=== PATIENT | female | born 1985 | race Hispanic/Latino ===

== ENCOUNTER 2017-06-10 11:29 | Emergency (ER) | payer OTHER ==
[~2017-06-10] VITALS: Ht 149.9 cm; Wt 82.6 kg
[~2017-06-10 11:29] MED LIST: ULTRAM50 MG PO; Z.0.LEVAQUIN500 MG PO; Z.0.LORTAB 7.5-5001 PO; ZYRTEC10 MG
--- OUTSIDE RECORDS SUMMARY | 2017-06-10 11:32 | XMS REPORT ---
Author Author [facility] Address Unknown Phone Unavailable Care Team Providers Care Adjustment Examiner Name Role Phone BRITTNI PÉREZ Unavailable Unavailable Problems This patient has no known problems. Allergies, Adverse Reactions, Alerts This patient has no known allergies or adverse reactions. Medications This patient has no known medications. Results Test Description Test Time Test Comments Text Results Atomic Results Result Comments CT ABDOMEN/PELVIS WO [place] [address] Patient Name: JOSE NOBLE MR #: [id number] : 1985 Age/Sex: 31/F Req #: [id number] Adm Physician: BRITTNI PÉREZ MD Ordered by: BRITTNI PÉREZ MD Report #: [id number] Location: [facility] Room/Bed: [place] [address] _ Procedure: [id number] CT/CT ABDOMEN/PELVIS WO Exam Date: Exam Time: REPORT STATUS: Signed PROCEDURE: CT ABDOMEN AND PELVIS WITHOUT CONTRAST TECHNIQUE: The abdomen and pelvis were scanned utilizing a multidetector helical scanner from the diaphragm to the lesser trochanter. No oral or intravenous contrast was administered per referring physician request. Coronal and sagittal multiplanar reformations were obtained. COMPARISON: CT abdomen pelvis with contrast 11/17/2014 INDICATIONS: LEFT FLANK PAIN. LOW HEMOGLOBIN FINDINGS: ABSENCE OF INTRAVENOUS CONTRAST DECREASES SENSITIVITY FOR DETECTION OF FOCAL LESIONS AND VASCULAR PATHOLOGY. LOWER THORAX: Normal. HEPATOBILIARY: No focal hepatic lesion or intrahepatic biliary ductal dilatation. The gallbladder has been removed. SPLEEN: No splenomegaly. PANCREAS: No focal masses or ductal dilatation. ADRENALS: No adrenal nodules. KIDNEYS/ URETERS: Macroscopic fat containing lesion in the left renal hilum with small nodular soft tissue component is unchanged. Additional subcentimeter hypoattenuating lesions scattered throughout the left kidney are again noted. A single small hypoattenuating lesion in the lower pole of the right kidney, also subcentimeter in size, is again noted. No renal, ureteral, or bladder calculi. No hydronephrosis. PELVIC ORGANS/BLADDER: The urinary bladder is incompletely distended but otherwise unremarkable. The uterus is neutral in position and appears normal. No adnexal mass. PERITONEUM / RETROPERITONEUM: Trace low attenuation free fluid in the rectouterine space. No pneumoperitoneum. LYMPH NODES: No pelvic sidewall, retroperitoneal, or mesenteric lymphadenopathy. VESSELS: Limited evaluation without intravenous contrast. The abdominal aorta is non-aneurysmal. GI TRACT: The large bowel shows no evidence of distention or wall thickening. Gas and fecal material are noted throughout. The appendix has been removed with metallic clips at the appendiceal stump. Laparoscopic band apparatus encircles the proximal stomach with intact tubing and reservoir. No small bowel dilatation to suggest obstruction. BONES AND SOFT TISSUES: No focal soft tissue abnormalities. Postsurgical changes of the anterior abdominal wall. No osseous destructive lesions. IMPRESSION: No acute intra- abdominal or pelvic CT abnormalities. No CT evidence of urolithiasis. 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 Dictated by: Misa Lee M.D. on 11/12/2016 at 7:04 Electronically approved by: Misa Lee M.D. on 11/12/2016 at 7:04 Dictated By: MISA LEE MD 3 Transcribed By: DEMAR on 11/12/16703 COPY TO: BRITTNI PÉREZ MD
[2017-06-10 12:31] LABS: BASOPHILS % 0.2 % (0.0-1.0); EOSINOPHILS # (AUTO) 0.1 (0.0-0.4); EOSINOPHILS % 1.5 % (0.0-6.0); HEMATOCRIT 32.5 % (34.2-44.1); LYMPHOCYTES # (AUTO) 2.2 (1.0-3.2); LYMPHOCYTES % 35.7 % (18.0-39.1); MEAN CORPUSCULAR HGB CONC 30.8 g/dL (31-35); MEAN CORPUSCULAR VOLUME 71.6 fL (81-99); MONOCYTES # (AUTO) 0.3 (0.2-0.8); MONOCYTES % 5.5 % (4.4-11.3); NEUTROPHILS # (AUTO) 3.4 (2.1-6.9); NEUTROPHILS % 56.9 % (38.7-80.0); PLATELET COUNT 359 x10e3/uL (140-360); RED BLOOD COUNT 4.54 x10e6/uL (3.6-5.1); RED CELL DISTRIBUTION WIDTH 14.8 % (11.7-14.4)
[2017-06-10 12:36] LABS: CLARITY,URINE CLEAR (CLEAR); COLOR,URINE YELLOW (YELLOW); KETONES,URINE NEGATIVE (NEGATIVE); LEUKOCYTE ESTERASE ,URINE NEGATIVE (NEGATIVE); NITRITE,URINE NEGATIVE (NEGATIVE); PROTEIN,URINE DIPSTICK NEGATIVE (NEGATIVE); URINE UROBILINOGEN 0.2 mg/dL (0.2 - 1)
[2017-06-10 12:37] LABS: BILIRUBIN,URINE NEGATIVE (NEGATIVE)
[2017-06-10 12:54] LABS: ALANINE AMINOTRANSFERASE 15 IU/L (0-55); ALBUMIN 3.6 g/dL (3.5-5.0); ALBUMIN/GLOBULIN RATIO 0.9 (0.8-2.0); ALKALINE PHOSPHATASE 89 IU/L (40-150); ANION GAP 11.4 mmol/L (8-16); BLOOD UREA NITROGEN 7 mg/dL (7-26); BUN/CREATININE RATIO 11 (6-25); CALCIUM 9.4 mg/dL (8.4-10.2); CARBON DIOXIDE 27 mmol/L (22-29); CHLORIDE 104 mmol/L (98-107); CREATININE, SERUM 0.61 mg/dL (0.57-1.11); EST GLOMERULAR FILTRATION RATE > 60 ML/MIN (60-); GLUCOSE 86 mg/dL (74-118); POTASSIUM 3.4 mmol/L (3.5-5.1); SODIUM 139 mmol/L (136-145)
[2017-06-10 13:08] LABS: BACTERIA,URINE FEW /HPF; EPITHELIAL CELLS,URINE FEW /LPF
[2017-06-10] MEDS ORDERED: POTASSIUM CHLORIDE 20 MEQ TAB CR PO STA (13:14)
--- NOTE | 2017-06-10 13:56 | Diagnostic Imaging Report ---
PROCEDURE: CT ABDOMEN AND PELVIS WITHOUT CONTRAST COMPARISON:[facility], CT, CT ABDOMEN/PELVIS W, 11/17/2014, 11:36. [facility], CT, CT ABDOMEN/PELVIS WO, 11/12/2016, 6:03. INDICATIONS:LEFT FLANK PAIN TECHNIQUE: Axial CT images through the abdomen and pelvis were obtained without intravenous contrast. Coronal and sagittal reformations were created. DLP: 702.2 mGy-cm2 FINDINGS: Right kidney: No calculus, renal edema, or perinephric inflammation. Fat attenuating lesion in the medial lower pole measures 5 mm and is stable. Left kidney: There is a duplicated collecting system. Macroscopic fat in the hilum is stable in appearance measuring approximately 4.0 x 3.5 cm in maximum dimension. Multiple fat attenuating lesions throughout the parenchyma measure up to 6 mm and are stable. No evidence of renal calculus. No renal edema or perinephric inflammation. Bladder/ureters: No ureteral dilatation or periureteric inflammation. No evidence of calculus in the ureters or bladder. Liver: Normal attenuation without mass or duct dilatation Spleen: Normal size and attenuation without mass. Biliary: The gallbladder is absent. Biliary tree is normal. Pancreas: Normal attenuation without mass or ductal dilatation. Adrenal Glands: No mass. Vasculature: Aorta and IVC are normal in diameter. GI: Postoperative changes of the GE junction from laparoscopic gastric band are re-demonstrated. The band is in appropriate orientation. Small bowel is normal in diameter with normal wall thickness. Large bowel is normal in diameter with normal wall thickness. No pericolonic inflammation. The appendix is absent. Peritoneum/Retroperitoneum: No free fluid or fluid collection. No lymphadenopathy. Reproductive organs: The uterus is present and mildly retroflexed in position. There are no adnexal masses. MSK: Unremarkable for age. Lung bases: Clear. Visualized portion of the mediastinum is normal. CONCLUSION: 1. No evidence of renal calculus or obstructive uropathy. 2. 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 3. No bowel obstruction or inflammation. 4. Postoperative changes as described above are stable. Dictated by: Duy Worley M.D. on 06/10/2017 at 13:57 Electronically approved by: Duy Worley M.D. on 06/10/2017 at 13:57
[2017-06-10 14:55] VITALS: BP 120/79
== END 2017-06-10 14:57 | disposition home or self-care (01) ==
LOC: ER 11:29
CPT/HCPCS: 36415; 74176; 80053; 81001; 84702; 85025; 86900; 99283

== ENCOUNTER → 2018-02-15 | Emergency (ER) | payer OTHER ==
[~2018-02-15] MED LIST changes: +CYCLOBENZAPRINE HCL 10 MG TAB PO ONE; +KETOROLAC TROMETHAMINE 60 MG/2 ML VIAL IM ONE; +MORPHINE SULFATE 2 MG/ML SYR IM STA
--- OUTSIDE RECORDS SUMMARY | 2018-02-15 11:11 | XMS REPORT | Continuity of Care Document ---
Author Author [facility] Interface Address Unknown Phone Unavailable Problems Problem Status Onset Date Classification Date Reported Comments Source OBSTRUCTING KIDNEY STONE Active 03/04/2016 [facility] Medications Medication Details Route Status Patient Instructions Ordering Provider Order Date Source Ciprofloxacin 500 MG Oral Tablet [Cipro] 500 mg=1 tab, PO, Q12H, X 7 day, # 14 tab, 0 Refill(s) Active 03/06/2016 [facility] tramadol hydrochloride 50 MG Oral Tablet 50 mg=1 tab, PO, Q4H, PRN Pain Score 4-6, # 30 tab, 0 Refill(s) Active 03/06/2016 [facility] tamsulosin 0.4 mg oral capsule 0.4 mg=1 cap, PO, After Breakfast, # 30 cap, 0 Refill(s) Active 03/06/2016 [facility] Rocephin 1 gm, Route: IVPB, Drug form: PDR/INJ, ONCE, Dosing Weight 78.636, kg, Start date: 03/05/16 17:02:00 DISTRICT SALES COORDINATOR, Stop date: 03/05/16 17:02:00 DISTRICT SALES COORDINATOR Inactive 03/05/2016 [facility] Ondansetron 4 mg, 2 mL, Route: IVP, Drug form: INJ, ONCE, Dosing Weight 78.636, kg, PRN Nausea & Vomiting, Start date: 03/05/16 16:48:00 CSTNotes: (Same as: Zofran) MEDICATION WASTE Product Size: 4 mg Product Wasted: ___ mg Inactive 03/05/2016 [facility] Naloxone 0.4 mg, 1 mL, Route: IVP, Drug form: INJ, Q2MIN, Dosing Weight 78.636, kg, PRN Narcotic Reversal, Start date: 03/05/16 16:48:00 DISTRICT SALES COORDINATOR, Duration: 8 doses or times, Stop date: Limited # of timesNotes: Same as Narcan Inactive 03/05/2016 [facility] Flumazenil 0.2 mg, 2 mL, Route: IVP, Drug form: INJ, PRN, Dosing Weight 78.636, kg, PRN Benzodiazepine Reversal, Initial dose, Start date: 03/05/16 16:48:00 DISTRICT SALES COORDINATOR, Duration: 30 day, Stop date: 04/04/16 16:47:00 C STNotes: (Same as: Romazicon) Inactive 03/05/2016 [facility] Hydralazine 10 mg, 0.5 mL, Route: IVP, Drug form: INJ, Q20Min, Dosing Weight 78.636, kg, PRN Elevated BP, Start date: 03/05/16 16:48:00 DISTRICT SALES COORDINATOR, Duration: 2 doses or times, Stop date: Limited # of timesNotes: (Same as: Apresoline) Push over 5 minutes Inactive 03/05/2016 [facility] Labetalol 10 mg, 2 mL, Route: IVP, Drug form: INJ, Q5Min, Dosing Weight 78.636, kg, PRN Elevated BP, Start date: 03/05/16 16:48:00 DISTRICT SALES COORDINATOR, Duration: 5 doses or times, Stop date: Limited # of times Inactive 03/05/2016 [facility] Flomax 0.4 mg, 1 cap, Route: PO, Drug form: CAP, After Breakfast, Dosing Weight 78.636, kg, Start date: 03/05/16 8:30:00 DISTRICT SALES COORDINATOR, Duration: 30 day, Stop date: 04/03/16 8:30:00 CSTNotes: (Same As: Flomax) "Do Not Crush" Inactive 03/05/2016 [facility] ketOROLAC 15 mg/mL injectable solution 15 mg, 1 mL, Route: IVP, Drug form: INJ, Q6H-02, Dosing Weight 78.636, kg, Start date: 03/05/16 2:00:00 DISTRICT SALES COORDINATOR, Stop date: 03/08/16 2:00:00 CSTNotes: (Same as:Toradol) IV bolus must be given >15 seconds. Give IM administration slowly and deeply into the muscle. Not for use > 4 days. Inactive 03/05/2016 [facility] tramadol hydrochloride 50 MG Oral Tablet 50 mg, 1 tab, Route: PO, Drug form: TAB, Q4H, Dosing Weight 78.636, kg, Start date: 03/05/16 0:00:00 DISTRICT SALES COORDINATOR, Duration: 30 day, Stop date: 04/03/16 20:00:00 CSTNotes: Not to exceed 400mg/day. (Same As: Ultram) Inactive 03/05/2016 [facility] Benadryl 25 mg, 1 cap, Route: PO, Drug form: CAP, TID, Dosing Weight 78.636, kg, PRN Itching, Start date: 03/04/16 23:39:00 DISTRICT SALES COORDINATOR, Duration: 30 day, Stop date: 04/03/16 23:38:00 CSTNotes: (Same as: Benadryl) No Longer Active 03/05/2016 [facility] Zofran 4 mg, 2 mL, Route: IVP, Drug form: INJ, Q8H, Dosing Weight 78.636, kg, PRN Nausea, Start date: 03/04/16 21:49:00 DISTRICT SALES COORDINATOR, Duration: 30 day, Stop date: 04/03/16 21:48:00 CSTNotes: (Same as: Zofran) MEDICATION WASTE Product Size: 4 mg Product Wasted: ___ mg No Longer Active 03/05/2016 [facility] Tramadol 50 mg, 1 tab, Route: PO, Drug form: TAB, Q4H, Dosing Weight 78.636, kg, PRN Pain Score 1-3, Start date: 03/04/16 20:33:00 DISTRICT SALES COORDINATOR, Duration: 30 day, Stop date: 04/03/16 20:32:00 CSTNotes: Not to exceed 4 00mg/day. (Same As: Ultram) Inactive 03/05/2016 [facility] Docusate Sodium 100 MG Oral Capsule [Colace] 100 mg, 1 cap, Route: PO, Drug form: CAP, BID, Dosing Weight 78.636, kg, Start date: 03/04/16 17:00:00 DISTRICT SALES COORDINATOR, Duration: 30 day, Stop date: 04/03/16 9:00:00 CSTNotes: (Same as: Colace) (Do Not Crush) No Longer Active 03/04/2016 [facility] sodium chloride 0.9% 1000 ml INJ 1,000 mL 1,000 mL, Rate: 125 ml/hr, Infuse over: 8 hr, Route: IV, Dosing Weight 78.636 kg, Total Volume: 1,000, Start date: 03/04/16 15:59:00 DISTRICT SALES COORDINATOR, Duration: 30 day, Stop date: 04/03/16 15:58:00 DISTRICT SALES COORDINATOR No Longer Active 03/04/2016 [facility] Dilaudid 0.5 mg, 0.25 mL, Route: IVP, Drug form: INJ, Q3H, Dosing Weight 78.636, kg, PRN Pain Score 7-10, Start date: 03/04/16 15:59:00 DISTRICT SALES COORDINATOR, Stop date: 04/03/16 15:58:00 DISTRICT SALES COORDINATOR, PainNotes: Same as Dilaudid No Longer Active 03/04/2016 [facility] Sodium Chloride 0.154 MEQ/ML Injectable Solution 1,000 mL, 1000 ml/hr, Infuse Over: 1 hr, Route: IV, 1,000, Drug form: INJ, ONCE, Priority: STAT, Dosing Weight 78.636 kg, Start date: 03/04/16 13:25:00 DISTRICT SALES COORDINATOR, Duration: 1 doses or times, Stop date: 03/04/16 13:25:00 DISTRICT SALES COORDINATOR Inactive 03/04/2016 [facility] Ondansetron 4 mg, 2 mL, Route: IVP, Drug form: INJ, ONCE, Dosing Weight 78.636, kg, Priority: STAT, Start date: 03/04/16 13:25:00 DISTRICT SALES COORDINATOR, Stop date: 03/04/16 13:25:00 CSTNotes: (Same as: Zofran) MEDICATION WASTE Product Size: 4 mg Product Wasted: _0__ mg Inactive 03/04/2016 [facility] Morphine 4 mg, 1 mL, Route: IVP, Drug form: INJ, ONCE, Dosing Weight 78.636, kg, Priority: STAT, Start date: 03/04/16 13:25:00 DISTRICT SALES COORDINATOR, Stop date: 03/04/16 13:25:00 CSTNotes: (Same as:MORPhine Sulfate) Inactive 03/04/2016 [facility] Ceftriaxone 1 gm, Route: IVPB, Drug form: PDR/INJ, ONCE, Dosing Weight 78.636, kg, Priority: STAT, Start date: 03/04/16 13:25:00 DISTRICT SALES COORDINATOR, Stop date: 03/04/16 13:25:00 DISTRICT SALES COORDINATOR Inactive 03/04/2016 [facility] Allergies, Adverse Reactions, Alerts Substance Category Reaction Severity Reaction type Status Date Reported Comments Source Immunizations Immunization Date Given Site Status Last Updated Comments Source Results Order Name Results Value Reference Range Date Interpretation Comments Source URINE AND STOOL UA Urobilinogen <=1.0 mg/dL 0.1 - 1.0 03/05/2016 [facility] URINE AND STOOL UA Glucose Negative mg/dL Negative mg/dL 03/05/2016 [facility] URINE AND STOOL UA Turbidity Clear (03/05/16 11:31 AM) Clear 03/05/2016 [facility] URINE AND STOOL UA Ketones Negative mg/dL Negative mg/dL 03/05/2016 [facility] URINE AND STOOL UA Protein Negative mg/dL Negative mg/dL 03/05/2016 [facility] URINE AND STOOL UA Spec Grav 1.006 <=1.030 03/05/2016 [facility] URINE AND STOOL UA pH 7.0 5.0 - 8.0 03/05/2016 [facility] URINE AND STOOL UA Bili Negative *NA* (03/05/16 11:31 AM) Negative 03/05/2016 [facility] URINE AND STOOL UA Blood Negative (03/05/16 11:31 AM) Negative 03/05/2016 [facility] URINE AND STOOL UA Nitrite Negative (03/05/16 11:31 AM) Negative 03/05/2016 [facility] URINE AND STOOL UA Color Light Yellow *NA* (03/05/16 11:31 AM) Yellow 03/05/2016 [facility] URINE AND STOOL UA Sq Epi None Seen 03/05/2016 [facility] URINE AND STOOL UA WBC 1 /HPF 0 - 5 03/05/2016 [facility] URINE AND STOOL UA Mucus Few /LPF None Seen /LPF 03/05/2016 [facility] URINE AND STOOL UA Leuk Est Negative (03/05/16 11:31 AM) Negative 03/05/2016 [facility] URINE CHEM U Preg Negative (03/05/16 11:31 AM) Negative 03/05/2016 [facility] ELECTROLYTES AGAP 12.6 meq/L 10.0 - 20.0 03/05/2016 [facility] ELECTROLYTES Creatinine Lvl 0.46 mg/dL 0.50 - 1.40 03/05/2016 [facility] ELECTROLYTES Sodium Lvl 137 meq/L 135 - 145 03/05/2016 [facility] ELECTROLYTES CO2 24 meq/L 24 - 32 03/05/2016 [facility] ELECTROLYTES Calcium Lvl 8.3 mg/dL 8.5 - 10.5 03/05/2016 [facility] ELECTROLYTES Chloride Lvl 104 meq/L 95 - 109 03/05/2016 [facility] ELECTROLYTES Potassium Lvl 3.6 meq/L 3.5 - 5.1 03/05/2016 [facility] ELECTROLYTES eGFR 134 mL/min/1.73m2 03/05/2016 Result Comment: The eGFR is calculated using the CKD-EPI formula. In most young, healthy individuals the eGFR will be >90 mL/min/1.73m2. The eGFR declines with age. An eGFR of 60-89 may be normal in some populations, particularly the elderly, for whom the CKD-EPI formula has not been extensively validated. Use of the eGFR is not recommended in the following populations: Individuals with unstable creatinine concentrations, including patients and those with serious co-morbid conditions. Patients with extremes in muscle mass or diet. The data above are obtained from the National Kidney Disease Education Program (NKDEP) which additionally recommends that when the eGFR is used in patients with extremes of body mass index for purposes of drug dosing, the eGFR should be multiplied by the estimated BMI. [facility] ELECTROLYTES BUN 4 mg/dL 7 - 22 03/05/2016 [facility] ELECTROLYTES Glucose Lvl 82 mg/dL 70 - 99 03/05/2016 [facility] HEMATOLOGY Monocytes # 0.4 K/CMM 0.0 - 0.8 03/05/2016 [facility] HEMATOLOGY Eosinophils # 0.1 K/CMM 0.0 - 0.5 03/05/2016 [facility] HEMATOLOGY Microcyte 3+ *NA* (03/05/16 4:14 AM) None Seen 03/05/2016 [facility] HEMATOLOGY Eosinophils 2.5 % 0.0 - 4.0 03/05/2016 [facility] HEMATOLOGY Segs-Bands # 3.6 K/CMM 1.5 - 8.1 03/05/2016 [facility] HEMATOLOGY Basophils 0.4 % 0.0 - 1.0 03/05/2016 [facility] HEMATOLOGY Lymphocytes # 1.3 K/CMM 1.0 - 5.5 03/05/2016 [facility] HEMATOLOGY Segs 65.5 % 45.0 - 75.0 03/05/2016 [facility] HEMATOLOGY Monocytes 7.3 % 2.0 - 12.0 03/05/2016 [facility] HEMATOLOGY Lymphocytes 24.3 % 20.0 - 40.0 03/05/2016 [facility] HEMATOLOGY RDW 18.5 % 11.5 - 14.5 03/05/2016 [facility] HEMATOLOGY MPV 7.7 fL 7.4 - 10.4 03/05/2016 [facility] HEMATOLOGY Platelet 312 K/CMM 133 - 450 03/05/2016 [facility] HEMATOLOGY MCHC 29.5 g/dL 32.0 - 36.0 03/05/2016 [facility] HEMATOLOGY Hgb 7.2 g/dL 12.0 - 16.0 03/05/2016 [facility] HEMATOLOGY RBC 3.98 M/CMM 4.20 - 5.40 03/05/2016 [facility] HEMATOLOGY MCH 18.2 pg 27.0 - 31.0 03/05/2016 [facility] HEMATOLOGY MCV 61.6 fL 80.0 - 98.0 03/05/2016 [facility] HEMATOLOGY Hct 24.5 % 36.0 - 48.0 03/05/2016 [facility] HEMATOLOGY WBC 5.5 K/CMM 3.7 - 10.4 03/05/2016 [facility] BLOOD BANK RESULTS Antibody Scrn Negative (03/04/16 1:38 PM) 03/04/2016 [facility] BLOOD BANK RESULTS ABO/Rh A POS 03/04/2016 [facility] CHEM PANEL Lactic Acid Lvl 0.7 mMol/L 0.5 - 2.2 03/04/2016 [facility] ELECTROLYTES AGAP 13.9 meq/L 10.0 - 20.0 03/04/2016 [facility] ELECTROLYTES eGFR 137 mL/min/1.73m2 03/04/2016 Result Comment: The eGFR is calculated using the CKD-EPI formula. In most young, healthy individuals the eGFR will be >90 mL/min/1.73m2. The eGFR declines with age. An eGFR of 60-89 may be normal in some populations, particularly the elderly, for whom the CKD-EPI formula has not been extensively validated. Use of the eGFR is not recommended in the following populations: Individuals with unstable creatinine concentrations, including patients and those with serious co-morbid conditions. Patients with extremes in muscle mass or diet. The data above are obtained from the National Kidney Disease Education Program (NKDEP) which additionally recommends that when the eGFR is used in patients with extremes of body mass index for purposes of drug dosing, the eGFR should be multiplied by the estimated BMI. [facility] ELECTROLYTES Chloride Lvl 106 meq/L 95 - 109 03/04/2016 [facility] ELECTROLYTES Creatinine Lvl 0.43 mg/dL 0.50 - 1.40 03/04/2016 [facility] ELECTROLYTES BUN 6 mg/dL 7 - 22 03/04/2016 [facility] ELECTROLYTES Calcium Lvl 8.2 mg/dL 8.5 - 10.5 03/04/2016 [facility] ELECTROLYTES CO2 26 meq/L 24 - 32 03/04/2016 [facility] ELECTROLYTES Potassium Lvl 4.9 meq/L 3.5 - 5.1 03/04/2016 Result Comment: Specimen Moderately Hemolyzed. [facility] ELECTROLYTES Sodium Lvl 141 meq/L 135 - 145 03/04/2016 [facility] ELECTROLYTES Glucose Lvl 83 mg/dL 70 - 99 03/04/2016 [facility] HEMATOLOGY PTT 32.6 s 22.9 - 35.8 03/04/2016 [facility] HEMATOLOGY INR 1.05 0.85 - 1.17 03/04/2016 [facility] HEMATOLOGY PT 13.9 s 12.0 - 14.7 03/04/2016 [facility] HEMATOLOGY Lymphocytes # 1.9 K/CMM 1.0 - 5.5 03/04/2016 [facility] HEMATOLOGY Segs-Bands # 3.9 K/CMM 1.5 - 8.1 03/04/2016 [facility] HEMATOLOGY Eosinophils # 0.2 K/CMM 0.0 - 0.5 03/04/2016 [facility] HEMATOLOGY Monocytes # 0.4 K/CMM 0.0 - 0.8 03/04/2016 [facility] HEMATOLOGY Schistocyte 1-3 per HPF (03/04/16 1:38 PM) None Seen 03/04/2016 [facility] HEMATOLOGY Hypochrom 1+ (03/04/16 1:38 PM) None Seen 03/04/2016 [facility] HEMATOLOGY Microcyte 3+ *NA* (03/04/16 1:38 PM) None Seen 03/04/2016 [facility] HEMATOLOGY Anisocyte 1+ *ABN* (03/04/16 1:38 PM) None Seen 03/04/2016 [facility] HEMATOLOGY Basophils # 0.1 K/CMM 0.0 - 0.2 03/04/2016 [facility] HEMATOLOGY Lymphocytes 29.1 % 20.0 - 40.0 03/04/2016 [facility] HEMATOLOGY Segs 59.7 % 45.0 - 75.0 03/04/2016 [facility] HEMATOLOGY Plt Morph Normal (03/04/16 1:38 PM) 03/04/2016 [facility] HEMATOLOGY Eosinophils 3.6 % 0.0 - 4.0 03/04/2016 [facility] HEMATOLOGY Monocytes 6.8 % 2.0 - 12.0 03/04/2016 [facility] HEMATOLOGY Basophils 0.8 % 0.0 - 1.0 03/04/2016 [facility] HEMATOLOGY MPV 8.6 fL 7.4 - 10.4 03/04/2016 [facility] HEMATOLOGY Platelet 349 K/CMM 133 - 450 03/04/2016 [facility] HEMATOLOGY RDW 18.7 % 11.5 - 14.5 03/04/2016 [facility] HEMATOLOGY MCH 17.9 pg 27.0 - 31.0 03/04/2016 [facility] HEMATOLOGY MCHC 29.9 g/dL 32.0 - 36.0 03/04/2016 Result Comment: repeated x2 [facility] HEMATOLOGY MCV 59.7 fL 80.0 - 98.0 03/04/2016 [facility] HEMATOLOGY WBC 6.6 K/CMM 3.7 - 10.4 03/04/2016 [facility] HEMATOLOGY RBC 4.23 M/CMM 4.20 - 5.40 03/04/2016 [facility] HEMATOLOGY Hgb 7.6 g/dL 12.0 - 16.0 03/04/2016 [facility] HEMATOLOGY Hct 25.2 % 36.0 - 48.0 03/04/2016 [facility] URINE AND STOOL UA Blood Trace *ABN* (03/04/16 1:38 PM) Negative 03/04/2016 [facility] URINE AND STOOL UA Leuk Est Small *ABN* (03/04/16 1:38 PM) Negative 03/04/2016 [facility] URINE AND STOOL UA Nitrite Negative (03/04/16 1:38 PM) Negative 03/04/2016 [facility] URINE AND STOOL UA Urobilinogen 0.2 EU/dL 0.1 - 1.0 03/04/2016 [facility] URINE AND STOOL UA Turbidity Clear (03/04/16 1:38 PM) Clear 03/04/2016 [facility] URINE AND STOOL UA Color Yellow *NA* (03/04/16 1:38 PM) Yellow 03/04/2016 [facility] URINE AND STOOL UA Protein Negative (03/04/16 1:38 PM) Negative 03/04/2016 [facility] URINE AND STOOL UA pH 7.0 5.0 - 8.0 03/04/2016 [facility] URINE AND STOOL UA Spec Grav 1.015 <=1.030 03/04/2016 [facility] URINE AND STOOL UA Ketones Negative *NA* (03/04/16 1:38 PM) Negative 03/04/2016 [facility] URINE AND STOOL UA Glucose Negative (03/04/16 1:38 PM) Negative 03/04/2016 [facility] URINE AND STOOL UA Bili Negative *NA* (03/04/16 1:38 PM) Negative 03/04/2016 [facility] URINE AND STOOL UA Bacteria Occasional /HPF None Seen /HPF 03/04/2016 [facility] URINE AND STOOL UA Mucus None Seen (03/04/16 1:38 PM) None Seen 03/04/2016 [facility] URINE AND STOOL UA RBC 0-2 /HPF 0 - 2 03/04/2016 [facility] URINE AND STOOL UA WBC 3-5 /HPF None Seen /HPF 03/04/2016 [facility] URINE AND STOOL UA Sq Epi Few /LPF Few /LPF 03/04/2016 [facility] URINE CHEM U Preg Negative (03/04/16 1:38 PM) Negative 03/04/2016 [facility] Vital Signs Vital Sign Value Date Comments Source Respitory Rate 18 03/06/2016 [facility] Temperature Oral (F) 98.2 F 03/06/2016 [facility] Heart Rate 96 03/06/2016 [facility] Systolic (mm Hg) 119 03/06/2016 [facility] Diastolic (mm Hg) 76 03/06/2016 [facility] Respitory Rate 16 03/06/2016 [facility] Systolic (mm Hg) 120 03/06/2016 [facility] Diastolic (mm Hg) 64 03/06/2016 [facility] Respitory Rate 14 03/06/2016 [facility] Systolic (mm Hg) 128 03/06/2016 [facility] Diastolic (mm Hg) 68 03/06/2016 [facility] Heart Rate 84 03/05/2016 [facility] Temperature Oral (F) 98.3 F 03/05/2016 [facility] Temperature Oral (F) 98.4 F 03/05/2016 [facility] Heart Rate 83 03/05/2016 [facility] Weight 78.636 03/05/2016 [facility] Height 152.4 cm 03/05/2016 [facility] BMI Calculated 33.86 03/05/2016 [facility] Weight 78.636 03/04/2016 [facility] BMI Calculated 33.86 03/04/2016 [facility] Height 152.4 cm 03/04/2016 [facility] Encounters Location Location Details Encounter Type Encounter Number Reason For Visit Attending Provider ADM Date DC Date Status Source [facility] Observation [id number] Noe Bardales 03/04/2016 03/06/2016 [facility] Procedures Procedure Code Date Perfomer Comments Source Gastric bypass operation [id number] [facility]
--- OUTSIDE RECORDS SUMMARY | 2018-02-15 11:11 | XMS REPORT | Summary of Care ---
Author Author [facility] Organization [facility] Address Unknown Phone Unavailable Encounter DOLORES Al(DENA) [id number] Date(s): 03/04/16 - 03/05/16 [facility] [address] [facility] provided by [facility] [employer] [facility] [place] [address]- Discharge Disposition: Home or Self Care Attending Physician: Noe Bardales MD Admitting Physician: Noe Bardales MD Referring Physician: María Jasso MD Vital Signs 1 2 3 Most recent to oldest [Reference Range]: 152.4 cm (03/04/16 6:04 PM) 152.4 cm (03/04/16 12:18 PM) Height 98.2 DegF (03/05/16 7:06 PM) 98.3 DegF (03/05/16 11:00 AM) 98.4 DegF (03/05/16 7:17 AM) Temperature Oral [96.4-99.1 DegF] 119/76 mmHg (03/05/16 7:06 PM) 120/64 mmHg (03/05/16 6:30 PM) 128/68 mmHg (03/05/16 6:15 PM) Blood Pressure [90-140/60-90 mmHg] 18 BRMIN (03/05/16 7:06 PM) 16 BRMIN (03/05/16 6:30 PM) 14 BRMIN (03/05/16 6:15 PM) Respiratory Rate [14-20 BRMIN] 96 bpm (03/05/16 7:06 PM) 84 bpm (03/05/16 11:00 AM) 83 bpm (03/05/16 7:17 AM) Peripheral Pulse Rate [60-100 bpm] 78.636 kg (03/04/16 6:04 PM) 78.636 kg (03/04/16 12:18 PM) Weight 33.86 m2 (03/04/16 6:04 PM) 33.86 m2 (03/04/16 12:18 PM) Body Mass Index Problem List No data available for this section Allergies, Adverse Reactions, Alerts Substance Reaction Severity Status NKDA Active Medications ANES flumazenil 0.2 mg, 2 mL, Route: IVP, Drug form: INJ, PRN, Dosing Weight 78.636, kg, PRN Crescencio zodiazepine Reversal, Initial dose, Start date: 03/05/16 16:48:00 TAX COMPLIANCE AGENT, Duration: 30 day, Stop date: 04/04/16 16:47:00 TAX COMPLIANCE AGENT Notes: (Same as: Romazicon) Start Date: 03/05/16 Stop Date: 03/05/16 Status: Discontinued ANES hydrALAZINE 10 mg, 0.5 mL, Route: IVP, Drug form: INJ, Q20Min, Dosing Weight 78.636, kg, PRN Elevated BP, Start date: 03/05/16 16:48:00 TAX COMPLIANCE AGENT, Duration: 2 doses or times, Stop date: Limited # of times Notes: (Same as: Apresoline)Push over 5 minutes Start Date: 03/05/16 Stop Date: 03/05/16 Status: Discontinued ANES labetalol 10 mg, 2 mL, Route: IVP, Drug form: INJ, Q5Min, Dosing Weight 78.636, kg, PRN El evated BP, Start date: 03/05/16 16:48:00 TAX COMPLIANCE AGENT, Duration: 5 doses or times, Stop d ate: Limited # of times Start Date: 03/05/16 Stop Date: 03/05/16 Status: Discontinued ANES naloxone 0.4 mg, 1 mL, Route: IVP, Drug form: INJ, Q2MIN, Dosing Weight 78.636, kg, PRN N arcotic Reversal, Start date: 03/05/16 16:48:00 TAX COMPLIANCE AGENT, Duration: 8 doses or times, Stop date: Limited # of times Notes: Same as Narcan Start Date: 03/05/16 Stop Date: 03/05/16 Status: Discontinued ANES ondansetron 4 mg, 2 mL, Route: IVP, Drug form: INJ, ONCE, Dosing Weight 78.636, kg, PRN Naus ea & Vomiting, Start date: 03/05/16 16:48:00 TAX COMPLIANCE AGENT Notes: (Same as: Zofran) MEDICATION WASTE Product Size: 4 mgProduct Was tata: ___ mg Start Date: 03/05/16 Stop Date: 03/05/16 Status: Discontinued Benadryl 25 mg, 1 cap, Route: PO, Drug form: CAP, TID, Dosing Weight 78.636, kg, PRN Itch ing, Start date: 03/04/16 23:39:00 TAX COMPLIANCE AGENT, Duration: 30 day, Stop date: 04/03/16 23 :38:00 TAX COMPLIANCE AGENT Notes: (Same as: Benadryl) Start Date: 03/04/16 Stop Date: 03/05/16 Status: Discontinued cefTRIAXone 1 gm, Route: IVPB, Drug form: PDR/INJ, ONCE, Dosing Weight 78.636, kg, Priority: STAT, Start date: 03/04/16 13:25:00 TAX COMPLIANCE AGENT, Stop date: 03/04/16 13:25:00 TAX COMPLIANCE AGENT Start Date: 03/04/16 Stop Date: 03/04/16 Status: Discontinued Cipro 500 mg oral tablet 500 mg=1 tab, PO, Q12H, X 7 day, # 14 tab, 0 Refill(s) Start Date: 03/05/16 Stop Date: 03/12/16 Status: Ordered Colace 100 mg oral capsule 100 mg, 1 cap, Route: PO, Drug form: CAP, BID, Dosing Weight 78.636, kg, Start d ate: 03/04/16 17:00:00 TAX COMPLIANCE AGENT, Duration: 30 day, Stop date: 04/03/16 9:00:00 TAX COMPLIANCE AGENT Notes: (Same as: Colace) (Do Not Crush) Start Date: 03/04/16 Stop Date: 03/05/16 Status: Discontinued Dilaudid 0.5 mg, 0.25 mL, Route: IVP, Drug form: INJ, Q3H, Dosing Weight 78.636, kg, PRN Pain Score 7-10, Start date: 03/04/16 15:59:00 TAX COMPLIANCE AGENT, Stop date: 04/03/16 15:58:00 TAX COMPLIANCE AGENT, Pain Notes: Same as Dilaudid Start Date: 03/04/16 Stop Date: 03/05/16 Status: Discontinued Flomax 0.4 mg, 1 cap, Route: PO, Drug form: CAP, After Breakfast, Dosing Weight 78.636, kg, Start date: 03/05/16 8:30:00 TAX COMPLIANCE AGENT, Duration: 30 day, Stop date: 04/03/16 8:3 0:00 TAX COMPLIANCE AGENT Notes: (Same As: Flomax) "Do Not Crush" Start Date: 03/05/16 Stop Date: 03/05/16 Status: Discontinued ketOROLAC 15 mg/mL injectable solution 15 mg, 1 mL, Route: IVP, Drug form: INJ, Q6H-02, Dosing Weight 78.636, kg, Start date: 03/05/16 2:00:00 TAX COMPLIANCE AGENT, Stop date: 03/08/16 2:00:00 TAX COMPLIANCE AGENT Notes: (Same as:Toradol) IV bolus must be given >15 seconds. Give IM administration slowly and deeply into the muscle. Not for use > 4 days. Start Date: 03/05/16 Stop Date: 03/05/16 Status: Discontinued morphine Sulfate 4 mg, 1 mL, Route: IVP, Drug form: INJ, ONCE, Dosing Weight 78.636, kg, Priority : STAT, Start date: 03/04/16 13:25:00 TAX COMPLIANCE AGENT, Stop date: 03/04/16 13:25:00 TAX COMPLIANCE AGENT Notes: (Same as:MORPhine Sulfate) Start Date: 03/04/16 Stop Date: 03/04/16 Status: Completed ondansetron 4 mg, 2 mL, Route: IVP, Drug form: INJ, ONCE, Dosing Weight 78.636, kg, Priority : STAT, Start date: 03/04/16 13:25:00 TAX COMPLIANCE AGENT, Stop date: 03/04/16 13:25:00 TAX COMPLIANCE AGENT Notes: (Same as: Zofran) MEDICATION WASTE Product Size: 4 mgProduct Was tata: _0__ mg Start Date: 03/04/16 Stop Date: 03/04/16 Status: Completed Rocephin 1 gm, Route: IVPB, Drug form: PDR/INJ, ONCE, Dosing Weight 78.636, kg, Start hina e: 03/05/16 17:02:00 TAX COMPLIANCE AGENT, Stop date: 03/05/16 17:02:00 TAX COMPLIANCE AGENT Start Date: 03/05/16 Stop Date: 03/05/16 Status: Completed Sodium Chloride 0.9% (Bolus) IV 1,000 mL, 1000 ml/hr, Infuse Over: 1 hr, Route: IV, 1,000, Drug form: INJ, ONCE, Priority: STAT, Dosing Weight 78.636 kg, Start date: 03/04/16 13:25:00 TAX COMPLIANCE AGENT, Dur ation: 1 doses or times, Stop date: 03/04/16 13:25:00 TAX COMPLIANCE AGENT Start Date: 03/04/16 Stop Date: 03/04/16 Status: Completed sodium chloride 0.9% 1000 ml INJ 1,000 mL 1,000 mL, Rate: 125 ml/hr, Infuse over: 8 hr, Route: IV, Dosing Weight 78.636 kg , Total Volume: 1,000, Start date: 03/04/16 15:59:00 TAX COMPLIANCE AGENT, Duration: 30 day, Stop date: 04/03/16 15:58:00 TAX COMPLIANCE AGENT Start Date: 03/04/16 Stop Date: 03/05/16 Status: Discontinued tamsulosin 0.4 mg oral capsule 0.4 mg=1 cap, PO, After Breakfast, # 30 cap, 0 Refill(s) Start Date: 03/05/16 Status: Ordered tramadol 50 mg, 1 tab, Route: PO, Drug form: TAB, Q4H, Dosing Weight 78.636, kg, PRN Pain Score 1-3, Start date: 03/04/16 20:33:00 TAX COMPLIANCE AGENT, Duration: 30 day, Stop date: 03/13 04/25 20:32:00 TAX COMPLIANCE AGENT Notes: Not to exceed 400mg/day. (Same As: Ultram) Start Date: 03/04/16 Stop Date: 03/04/16 Status: Discontinued tramadol 50 mg oral tablet 50 mg=1 tab, PO, Q4H, PRN Pain Score 4-6, # 30 tab, 0 Refill(s) Start Date: 03/05/16 Stop Date: 03/05/17 Status: Ordered tramadol 50 mg oral tablet 50 mg, 1 tab, Route: PO, Drug form: TAB, Q4H, Dosing Weight 78.636, kg, Start da te: 03/05/16 0:00:00 TAX COMPLIANCE AGENT, Duration: 30 day, Stop date: 04/03/16 20:00:00 TAX COMPLIANCE AGENT Notes: Not to exceed 400mg/day. (Same As: Ultram) Start Date: 03/05/16 Stop Date: 03/05/16 Status: Discontinued Zofran 4 mg, 2 mL, Route: IVP, Drug form: INJ, Q8H, Dosing Weight 78.636, kg, PRN Nause a, Start date: 03/04/16 21:49:00 TAX COMPLIANCE AGENT, Duration: 30 day, Stop date: 04/03/16 21:4 8:00 TAX COMPLIANCE AGENT Notes: (Same as: Zofran) MEDICATION WASTE Product Size: 4 mgProduct Was tata: ___ mg Start Date: 03/04/16 Stop Date: 03/05/16 Status: Discontinued Results BLOOD BANK RESULTS Most recent to 1 2 oldest [Reference Range]: ABO/Rh A POS *Unknown* (03/04/16 1:38 PM) Antibody Scrn Negative (03/04/16 1:38 PM) ELECTROLYTES Most recent to 1 2 oldest [Reference Range]: Sodium Lvl [135-145 137 mEq/L 141 mEq/L mEq/L] (03/05/16 4:14 AM) (03/04/16 1:38 PM) Potassium Lvl 3.6 mEq/L 4.9 mEq/L 1 [3.5-5.1 mEq/L] (03/05/16 4:14 AM) (03/04/16 1:38 PM) Chloride Lvl [95-109 104 mEq/L 106 mEq/L mEq/L] (03/05/16 4:14 AM) (03/04/16 1:38 PM) CO2 [24-32 mEq/L] 24 mEq/L 26 mEq/L (03/05/16 4:14 AM) (03/04/16 1:38 PM) AGAP [10.0-20.0 12.6 mEq/L 13.9 mEq/L mEq/L] (03/05/16 4:14 AM) (03/04/16 1:38 PM) 1Result Comment: Specimen Moderately Hemolyzed. CHEM PANEL Most recent to 1 2 oldest [Reference Range]: Creatinine Lvl 0.46 mg/dL 0.43 mg/dL [0.50-1.40 mg/dL] *LOW* *LOW* (03/05/16 4:14 AM) (03/04/16 1:38 PM) eGFR 134 mL/min/1.73m2 1 137 mL/min/1.73m2 2 *NA* *NA* (03/05/16 4:14 AM) (03/04/16 1:38 PM) BUN [7-22 mg/dL] 4 mg/dL 6 mg/dL *LOW* *LOW* (03/05/16 4:14 AM) (03/04/16 1:38 PM) Glucose Lvl [70-99 82 mg/dL 83 mg/dL mg/dL] (03/05/16 4:14 AM) (03/04/16 1:38 PM) Calcium Lvl 8.3 mg/dL 8.2 mg/dL [8.5-10.5 mg/dL] *LOW* *LOW* (03/05/16 4:14 AM) (03/04/16 1:38 PM) Lactic Acid Lvl 0.7 mMol/L [0.5-2.2 mMol/L] (03/04/16 1:38 PM) 1Result Comment: The eGFR is calculated using the [...] from the National Kidney Disease Education Program ( NKDEP) which additionally recommends that when the eGFR is used in patients with extremes of body mass index for purposes of drug dosing, the eGFR should be mul tiplied by the estimated BMI. 2Result Comment: The eGFR is calculated using the [...] from the National Kidney Disease Education Program ( NKDEP) which additionally recommends that when the eGFR is used in patients with extremes of body mass index for purposes of drug dosing, the eGFR should be mul tiplied by the estimated BMI. URINE CHEM Most recent to 1 2 oldest [Reference Range]: U Preg [Negative] Negative Negative (03/05/16 11:31 AM) (03/04/16 1:38 PM) URINE AND STOOL Most recent to 1 2 oldest [Reference Range]: UA Turbidity [Clear] Clear Clear (03/05/16 11:31 AM) (03/04/16 1:38 PM) UA Color [Yellow] Light Yellow Yellow *NA* *NA* (03/05/16 11:31 AM) (03/04/16 1:38 PM) UA pH [5.0-8.0] 7.0 (03/05/16 11:31 AM) UA pH [5.0-8.0] 7.0 (03/04/16 1:38 PM) UA Spec Grav 1.006 [<=1.030] (03/05/16 11:31 AM) UA Spec Grav 1.015 [<=1.030] (03/04/16 1:38 PM) UA Glucose [Negative Negative mg/dL mg/dL] *NA* (03/05/16 11:31 AM) UA Glucose Negative [Negative] (03/04/16 1:38 PM) UA Blood [Negative] Negative Trace (03/05/16 11:31 AM) *ABN* (03/04/16 1:38 PM) UA Ketones [Negative Negative mg/dL mg/dL] *NA* (03/05/16 11:31 AM) UA Ketones Negative [Negative] *NA* (03/04/16 1:38 PM) UA Protein [Negative Negative mg/dL mg/dL] (03/05/16 11:31 AM) UA Protein Negative [Negative] (03/04/16 1:38 PM) UA Urobilinogen <=1.0 mg/dL [0.1-1.0 mg/dL] *NA* (03/05/16 11:31 AM) UA Urobilinogen 0.2 EU/dL [0.1-1.0 EU/dL] (03/04/16 1:38 PM) UA Bili [Negative] Negative Negative *NA* *NA* (03/05/16 11:31 AM) (03/04/16 1:38 PM) UA Leuk Est Negative Small [Negative] (03/05/16 11:31 AM) *ABN* (03/04/16 1:38 PM) UA Nitrite Negative Negative [Negative] (03/05/16 11:31 AM) (03/04/16 1:38 PM) UA WBC [0-5 /HPF] 1 /HPF (03/05/16 11:31 AM) UA WBC [None Seen 3-5 /HPF /HPF] (03/04/16 1:38 PM) UA RBC [0-2 /HPF] 0-2 /HPF (03/04/16 1:38 PM) UA Bacteria [None Occasional /HPF Seen /HPF] (03/04/16 1:38 PM) UA Sq Epi None Seen *NA* (03/05/16 11:31 AM) UA Sq Epi [Few /LPF] Few /LPF (03/04/16 1:38 PM) UA Mucus [None Seen Few /LPF /LPF] *NA* (03/05/16 11:31 AM) UA Mucus [None Seen] None Seen (03/04/16 1:38 PM) HEMATOLOGY Most recent to 1 2 oldest [Reference Range]: WBC [3.7-10.4 K/CMM] 5.5 K/CMM 6.6 K/CMM (03/05/16 4:14 AM) (03/04/16 1:38 PM) RBC [4.20-5.40 3.98 M/CMM 4.23 M/CMM M/CMM] *LOW* (03/04/16 1:38 PM) (03/05/16 4:14 AM) Hgb [12.0-16.0 g/dL] 7.2 g/dL 7.6 g/dL *LOW* *LOW* (03/05/16 4:14 AM) (03/04/16 1:38 PM) Hct [36.0-48.0 %] 24.5 % 25.2 % *LOW* *LOW* (03/05/16 4:14 AM) (03/04/16 1:38 PM) MCV [80.0-98.0 fL] 61.6 fL 59.7 fL *LOW* *LOW* (03/05/16 4:14 AM) (03/04/16 1:38 PM) MCH [27.0-31.0 pg] 18.2 pg 17.9 pg *LOW* *LOW* (03/05/16 4:14 AM) (03/04/16 1:38 PM) MCHC [32.0-36.0 29.5 g/dL 29.9 g/dL 1 g/dL] *LOW* *LOW* (03/05/16 4:14 AM) (03/04/16 1:38 PM) RDW [11.5-14.5 %] 18.5 % 18.7 % *HI* *HI* (03/05/16 4:14 AM) (03/04/16 1:38 PM) Platelet [133-450 312 K/CMM 349 K/CMM K/CMM] (03/05/16 4:14 AM) (03/04/16 1:38 PM) MPV [7.4-10.4 fL] 7.7 fL 8.6 fL (03/05/16 4:14 AM) (03/04/16 1:38 PM) Segs [45.0-75.0 %] 65.5 % 59.7 % (03/05/16 4:14 AM) (03/04/16 1:38 PM) Lymphocytes 24.3 % 29.1 % [20.0-40.0 %] (03/05/16 4:14 AM) (03/04/16 1:38 PM) Monocytes [2.0-12.0 7.3 % 6.8 % %] (03/05/16 4:14 AM) (03/04/16 1:38 PM) Eosinophils [0.0-4.0 2.5 % 3.6 % %] (03/05/16 4:14 AM) (03/04/16 1:38 PM) Basophils [0.0-1.0 0.4 % 0.8 % %] (03/05/16 4:14 AM) (03/04/16 1:38 PM) Segs-Bands # 3.6 K/CMM 3.9 K/CMM [1.5-8.1 K/CMM] (03/05/16 4:14 AM) (03/04/16 1:38 PM) Lymphocytes # 1.3 K/CMM 1.9 K/CMM [1.0-5.5 K/CMM] (03/05/16 4:14 AM) (03/04/16 1:38 PM) Monocytes # [0.0-0.8 0.4 K/CMM 0.4 K/CMM K/CMM] (03/05/16 4:14 AM) (03/04/16 1:38 PM) Eosinophils # 0.1 K/CMM 0.2 K/CMM [0.0-0.5 K/CMM] (03/05/16 4:14 AM) (03/04/16 1:38 PM) Basophils # [0.0-0.2 0.1 K/CMM K/CMM] (03/04/16 1:38 PM) Anisocyte [None 1+ Seen] *ABN* (03/04/16 1:38 PM) Hypochrom [None 1+ Seen] (03/04/16 1:38 PM) Microcyte [None 3+ 3+ Seen] *NA* *NA* (03/05/16 4:14 AM) (03/04/16 1:38 PM) Schistocyte [None 1-3 per HPF Seen] (03/04/16 1:38 PM) Plt Morph Normal (03/04/16 1:38 PM) PT [12.0-14.7 13.9 seconds seconds] (03/04/16 1:38 PM) INR [0.85-1.17] 1.05 (03/04/16 1:38 PM) PTT [22.9-35.8 32.6 seconds seconds] (03/04/16 1:38 PM) 1Result Comment: repeated x2 Immunizations No data available for this section Procedures Procedure Date Related Diagnosis Body Site Gastric bypass operation Social History Social History Type Response Smoking Status Never smoker; Exposure to Tobacco Smoke None; Cigarette Smoking Last 365 Days No; Reg Smoking Cessation Counseling No Assessment and Plan Extracted from: Title: Clinical Document Author: Monika Leo MD Date: 03/05/16 DATE OF OPERATION/PROCEDURE: 03/05/2016 *_*_* ATTENDING: Dr. Monika Leo. PREOPERATIVE DIAGNOSIS: Left ureteral stone. 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 PROCEDURE PERFORMED: 1. Cystoscopy. 2. Left retrograde pyelogram. 3. Left ureteroscopy. 4. Left ureteral stent placement. SURGEON: Dr. Leo. SUPERVISOR DUMPING: Dr. Carleen Kilgore. Dr. Adolfo Funes. ANESTHESIA: General. SPECIMENS: None. COMPLICATIONS: None. DRAINS: A 6 Irish x 24 cm [place] double-J ureteral stent on the left. ESTIMATED BLOOD LOSS: Minimal. INDICATION FOR PROCEDURE: A 30-year-old female who presented to the emergency department with acute onset of left-sided flank pain as well as mild dysuria. She underwent a CT scan, which demonstrated a 7-mm stone in the distal left ureter adjacent at the UPJ. After discussion of risks and benefits, she has elected to proceed to the operating room for cystoscopy, left retrograde pyelogram, ureteroscopy, laser lithotripsy and stent placement as indicated. FINDINGS: 1. Normal bladder mucosa with no tumors, lesions or foreign bodies present. 2. Bilateral ureteral orifices in normal orthotopic position. 3. Left retrograde pyelogram demonstrates a partially duplicated system with an upper and lower pole moieties coming together in the proximal one-third of the ureter to a single distal ureter and one ureteral orifice. 4. Retrograde pyelogram demonstrates no filling defects and a radiopaque round 7-mm object just lateral to the ureteral orifice, which likely represent phlebolith. It clearly was separate from the ureter. 5. Ureteroscopy into the upper and lower pole moiety as well as the entire ureter demonstrates no evidence of stone. 6. A 6-Irish x 24 cm [place] double-J ureteral stent placed into the lower pole moiety under fluoroscopic guidance and verified to be in proper position at the conclusion of the procedure. The string was left intact and attached to the patient's leg. PROCEDURE IN DETAIL: On the day of the procedure, informed consent was reviewed with the patient; then brought to the operating room, placed on the table in supine position where general anesthesia was induced. She was then repositioned in dorsal lithotomy position, prepped and draped in the standard fashion for cystoscopy. A preoperative timeout was performed to ensure correct patient, site, side of procedure and that preoperative antibiotics had been given. We then introduced the 22.5-Irish rigid cystoscope into the urethra and a diagnostic cystoscopy with findings as described above. A sensor guidewire was advanced through the ureteral orifice and a dual lumen ureteral catheter was advanced over the wire and retrograde pyelogram was obtained with findings as described above. A second wire was then advanced through the dual lumen catheter and into the renal pelvis. The safety wire was attached to the drapes and over the second wire, a flexible ureteroscope was advanced. Once we were present within the renal pelvis the working wire was withdrawn. A systematic evaluation of each individual lea was performed with no stone identified. The scope was then withdrawn down the ureter until a second lumen was identified. This was cannulated with a sensor guidewire through the ureteroscope and the scope was advanced over the wire and into the upper pole. Once again, a systematic evaluation of each lea was performed which demonstrated no stone. The scope was then withdrawn down the ureter evaluating the ureter in its entirety and no stone was visualized. The scope was then slowly withdrawn. Over the safety wire, a 6-Irish x 24 cm double-J ureteral stent was advanced and once was present within the renal pelvis and the wire was slowly withdrawn and good proximal coil was visualized. The stent was then advanced to the urethral meatus and the wire was slowly withdrawn. A single shot fluoroscopic image of the bladder demonstrated a good coil within the bladder. This concluded the procedure, which the patient tolerated well. There were no immediate complications. DISPOSITION: To PACU, then back to the floor. She will be discharged on a course of antibiotics and remove her ureteral stent in 5 days by pulling the string. We will have her follow up in clinic in 4 to 6 weeks with a renal ultrasound to ensure that there is no evidence of bowel obstruction. Addendum I was present and performed all abad portions of the procedure by Monika Leo MD on 03/06/2016 17:42
--- NOTE | 2018-02-15 11:38 | NUR ---
PT THOUGHT THIS WAS AN URGENT CARE. PT LEFT FROM LOBBY
== END | disposition left against medical advice (07) ==
LOC: FSED 11:06
DX: R50.9 Fever, unspecified (principal)